=== PATIENT | male | born 1990 | race Two or more races ===

== ENCOUNTER 2024-08-22 02:34 | Emergency (ER) | payer BC, OTHER ==
[~2024-08-22] VITALS: Ht 170.2 cm; Wt 70.0 kg
--- NOTE | 2024-08-22 03:17 | ED.PDOC ---
Back pain HPI HPI Comments Pt presents to ED d/t right ankle pain. Pt states he woke up, tripped and fell causing pain to right ankle. Pt denies LOC. Pain rated 10/10. CSM intact. Skin WNL. No swelling or deformity. DENIES NUMBNESS, OR WEAKNESS. Chief Complaint: Lower Extremity Time Seen by MD: 03:06 Reviewed Notes: Nurses Notes, Medications, Allergies Allergies: Coded Allergies: NO KNOWN ALLERGIES (Unverified , 08/22/24) Home Meds Active Scripts Ibuprofen (Ibuprofen) 800 Mg Tab, 1 TAB PO TID PRN for 6 Days, #18 TAB Prov:KANE MELGOZA [employer] INST[employer]ER 08/22/24 Information Source: Patient Mode of Arrival: Wheelchair Past Medical History PAST MEDICAL HISTORY: Denies Surgical History: Denies all surgeries Family History Family History: Reviewed,noncontributory to illness Social History Smoker: Non-Smoker Alcohol: Denies ETOH Use Drugs: Denies Drug Use Constitutional: denies: chills, diaphoresis, fatigue, fever, malaise, sweats, weakness, others EENTM: denies: blurred vision, double vision, ear bleeding, ear discharge, ear drainage, ear pain, ear ringing, eye pain, eye redness, hearing loss, mouth pain, mouth swelling, nasal discharge, nose bleeding, nose congestion, nose pain, photophobia, tearing, throat pain, throat swelling, voice changes, others Respiratory: denies: cough, hemoptysis, orthopnea, SOB at rest, shortness of breath, SOB with excertion, stridor, wheezing, others Cardiovascular: denies: chest pain, dizzy spells, diaphoresis, Dyspnea on exertion, edema, irregular heart beat, left arm pain, lightheadedness, palpitations, PND, syncope, others Gastrointestinal: denies: abdomen distended, abdominal pain, blood streaked bowels, constipated, diarrhea, dysphagia, difficulty swallowing, hematemesis, melena, nausea, poor appetite, poor fluid intake, rectal bleeding, rectal pain, vomiting, others Genitourinary: denies: burning, dysuria, flank pain, frequency, hematuria, incontinence, penile discharge, penile sore, pain, testicle pain, testicle swelling, urgency, others Neurological: denies: dizziness, fainting, headache, left sided numbness, left sided weakness, numbness, paresthesia, pre-existing deficit, right sided numbness, right sided weakness, seizure, speech problems, tingling, tremors, weakness, others Musculoskeletal: reports: others (RIGHT ANKLE PAIN AND SWELLING); denies: back pain, gout, joint pain, joint swelling, muscle pain, muscle stiffness, neck pain Integumetry: denies: bruises, change in color, change in hair/nails, dryness, laceration, lesions, lumps, rash, wounds, others Allergic/Immunocompromised: denies: Difficulty Healing, Frequent Infections, Hives, Itching, others Hematologic/Lymphatic: denies: anemia, blood clots, easy bleeding, easy bruising, swollen glands, others Endocrine: denies: excessive hunger, excessive sweating, excessive thirst, excessive urination, flushing, intolerance to cold, intolerance to heat, unexplained weight gain, unexplained weight loss, others Psychiatric: denies: anxiety, bipolar disorder, depression, hopeless, panic disorder, schizophrenia, sleepless, suicidal, others Physical Exam General Appearance: No Apparent Distress, Normal HEENT: Pharynx Normal Neck: Full Range of Motion, Non-Tender Respiratory: Lungs Clear, No Respiratory Distress, Normal Breath Sounds Cardiovascular: No Edema, No Murmur, Normal Peripheral Pulses, Regular Rate/Rhythm Breast Exam: Deferred Gastrointestinal: Non Tender, Soft Genitalia: Deferred Pelvic: Deferred Rectal: Deferred Extremities: Normal capillary refill, Normal inspection, Normal range of motion, Non-tender, No pedal edema Musculoskeletal : Location: Right Extremity Location: Ankle (MODERATE SWELLING AROUND RIGHT ANKLE WITH NOTED TRACE ECCHYMOSIS NO NOTED CREPITUS DISCOMFORT ON FULL RANGE OF MOTION. 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 Was a procedure done?: No Back Pain Differential Dx Differential Diagnosis: Fracture, Musculoskeletal Pain X-Ray, Labs, Meds, VS Vital Signs Date Time Temp Pulse Resp B/P (MAP) Pulse Ox O2 Delivery O2 Flow Rate FiO2 08/22/24 02:43 98.2 116 16 139/81 (100) 94 Current Medications Medications (Trade) Dose Ordered Sig/Shine Route Start Time Stop Time Status Last Admin Ketorolac Tromethamine (Toradol Injection) 60 mg ONCE ONCE IM 08/22/24 04:15 08/22/24 04:16 08/22/24 04:06 Acetaminophen/ Hydrocodone Bitart (Tangent 5/325MG Tab) 2 tab ONCE ONCE PO 08/22/24 04:15 08/22/24 04:16 08/22/24 04:06 X-Ray, Labs, Meds, VS Comment RIGHT ANKLE X-RAY TIB-FIB SHOWS NO ACUTE FRACTURES OR OSSEOUS LESIONS. PATIENT GIVEN TORADOL 60 MG IM AND NORCO 10 MG P.O. REPORTS IMPROVEMENT IN PAIN AND FUNCTION REQUESTING DISCHARGE AT THIS TIME. PLACED IN VELCRO STIRRUP SPLINT ALONG WITH CRUTCHES. ADVISED TO FOLLOW UP WITH HIS PCP IN 1-2 DAYS CONSIDER REPEAT X-RAY IN 7 DAYS OR MRI IF SYMPTOMS PERSIST. SCRIPT IBUPROFEN 800 MG T.I.D. P.R.N.. ADVISED ON RICE. ER RETURN PRECAUTIONS GIVEN PATIENT INDICATES UNDERSTANDING AGREES WITH DISCHARGE PLAN OF CARE. Time of 1ST Reevaluation: 04:04 Reevaluation 1ST: Improved Patient Education/Counseling: Diagnosis, Treatment, Prognosis, Need For Follow Up Family Education/Counseling: No Family Present Departure 1 Departure Time of Disposition: 04:04 Impression: Primary Impression: Moderate right ankle sprain Qualified Codes: S93.401A - Sprain of unspecified ligament of right ankle, initial encounter Disposition: HOME / SELF CARE / HOMELESS Condition: Stable e-Prescriptions Ibuprofen (Ibuprofen) 800 Mg Tab 1 TAB PO TID PRN for 6 Days, #18 TAB Prov: KANE MELGOZA 08/22/24 Discharged With: Self Critical Care Note Critical Care Time?: No Stability Stability form required: KANE Flowers Aug 22, 2024 03:17
--- NOTE | 2024-08-22 03:47 | DVH ---
XY R TIB FIB XRAY, 08/22/2024 INDICATION: fall TECHNICAL DATA: Frontal and lateral views were obtained of the right tibia and fibula. COMPARISON: None FINDINGS: There is no osseous abnormality. Soft tissues are normal. IMPRESSION: 1. Unremarkable examination of the right tibia and fibula. No acute fracture or dislocation.
--- NOTE | 2024-08-22 03:51 | DVH ---
CLINICAL INDICATION: R/o fracture TECHNIQUE: 3 radiographic views of the right ankle were obtained. Comparison: None FINDINGS/IMPRESSION: There is no evidence of acute fracture or dislocation.
[2024-08-22] MEDS ORDERED: IBUP-1456 PO (04:05)
[2024-08-22] MEDS: HYDROcodone-ACET 5/325MG TAB PO ONE (04:06)
[2024-08-22] MEDS: KETOROLAC TROMETH 60MG/2ML VIAL IM ONE (04:06)
[2024-08-22] MEDS: ACETAMINOPHEN 325 MG TAB PO ONE (04:20)
[2024-08-22 04:26] VITALS: BP 139/81; PULSE 116; RESP 16; TEMP 98.2; O2SAT 94
== END 2024-08-22 04:34 | disposition home or self-care (01) ==
LOC: ER 02:34
DX: S93.401A Sprain of unspecified ligament of right ankle, initial encounter (principal); W01.0XXA Fall on same level from slipping, tripping and stumbling without subsequent striking against object, initial encounter; Y93.89 Activity, other specified; Y92.89 Other specified places as the place of occurrence of the external cause; Y99.8 Other external cause status
CPT/HCPCS: 29515; 73590; 73610; 96372; 99284; J1885